=== PATIENT | male | born 1925 | race Caucasian/White ===

== ENCOUNTER → 2016-10-24 | Outpatient (CLI) | payer OTHER ==
[~2016-10-24] MED LIST: ANTIVERT25 MG PO; GLUCOPHAGE1000 MG PO
== END ==
LOC: RAD 15:25
DX: R10.31 Right lower quadrant pain (principal)

== ENCOUNTER → 2016-12-20 | Outpatient (CLI) | payer OTHER | LOC: MRI 08:29 | DX: R26.9 Unspecified abnormalities of gait and mobility (principal); W19.XXXA Unspecified fall, initial encounter ==

== ENCOUNTER → 2017-03-07 | Outpatient (CLI) | payer OTHER ==
[2017-03-07 16:28] LABS: CREATININE 1.2 mg/dL (0.7-1.3)
== END ==
LOC: CAT 03-01 11:34
PROVIDERS: Surgery
DX: K40.90 Unilateral inguinal hernia, without obstruction or gangrene, not specified as recurrent (principal)